=== PATIENT | female | born 1980 | race Caucasian/White ===

== ENCOUNTER 2024-04-13 08:31 | Emergency (ER) | payer OTHER ==
[~2024-04-13] VITALS: Ht 165.1 cm; Wt 102.4 kg
[2024-04-13 10:25] VITALS: BP 128/74; PULSE 74; RESP 18; TEMP 98.1; O2SAT 97
== END 2024-04-13 10:27 | disposition home or self-care (01) ==
LOC: ER 08:33
DX: G89.29 Other chronic pain (principal); M25.512 Pain in left shoulder; Z88.8 Allergy status to other drugs, medicaments and biological substances
CPT/HCPCS: 73030; 99284